=== PATIENT | female | born 1940 | race Caucasian/White ===

== ENCOUNTER 2022-05-07 13:31 | Emergency (ER) | payer MEDICARE, BC, SELFPAY ==
[2022-05-07] VITALS (15 sets, daily range): BP systolic 128–172; BP diastolic 60–70; PULSE 81–92; RESP 15–36; TEMP 36.4; O2SAT 94–100; BMI 20.5
[2022-05-07 14:20] LABS: Add Manual Diff / Slide Review NO; Basophils Absolute Auto 0 /uL (0-100); Basophils Percent Auto 0.4 % (0-2); Eosinophils Absolute Auto 0 /uL (0-450); Eosinophils Percent Auto 0.1 % (2-4); Hematocrit 42.7 % (36-46); Hemoglobin 14.5 g/dL (12.0-16.0); Lymphocytes Absolute Auto 600 /uL (1100-4500); Lymphocytes Percent Auto 10.1 % (25-40); Mean Corpuscular HGB Conc 33.8 % (30-36); Mean Corpuscular Hemoglobin 32.8 PG (26-34); Monocytes Absolute Auto 700 /uL (0-900); Monocytes Percent Auto 11.4 % (3-14); Neutrophils Absolute Auto 5000 /uL (1500-7000); Platelet Count 181 X10^3/uL (150-400); Red Blood Cell Count 4.41 X10^6/uL (4.0-5.2); Red Cell Distribution Width 13.2 % (11.6-14.8); White Blood Cell Count 6.4 X10^3/uL (4.5-11.0)
[2022-05-07 14:38] LABS: Alanine Aminotransferase 22 IU/L (<35); Albumin 3.9 g/dL (3.5-5.0); Albumin Globulin Ratio 1.2 (1.0-2.8); Alkaline Phosphatase 54 U/L (38-126); Aspartate Aminotransferase 34 IU/L (14-36); BUN Creatinine Ratio 26.7 (6-22); Bilirubin Total 0.7 mg/dL (0.2-1.3); Blood Urea Nitrogen 24 mg/dL (7-17); Calcium 9.1 mg/dL (8.4-10.2); Carbon Dioxide 22 mmol/L (22-32); Chloride 100 mmol/L (98-107); Estimated Glomerular Filt Rate > 60 mL/min (>60); Globulin 3.2 g/dL (1.7-4.1); Glucose 110 mg/dL (80-110); Lipase 45 U/L (23-300); Sodium 133 mmol/L (137-145); Total Protein 7.1 g/dL (6.3-8.2)
[2022-05-07 14:39] LABS: HEMOLYSIS 53 (0-50); Potassium 3.2 mmol/L (3.4-5.1)
--- NOTE | 2022-05-07 16:50 | PC.NURSE ---
Pt is unstable on her feet, states she has no appetite and hasn't had much to eat in several days, c/o abd pain, diarrhea and nausea for several days. Recently traveled to [place], was in the ER in [facility].
--- NOTE | 2022-05-07 17:02 | PC.NURSE ---
Pt states black stool a day or two ago. Today watery gold/brown colored diarrhea.
[2022-05-07 17:36] LABS: Appearance Urine UA SL CLOUDY; Bilirubin Urine UA 1+ (NEGATIVE); Color Urine UA YELLOW; Glucose Urine UA NEGATIVE (Negative); Ketones Urine UA 1+ (NEGATIVE); Leukocyte Esterase Urine UA 1+ (NEGATIVE); Nitrite Urine UA NEGATIVE (Negative); Occult Blood Urine UA 2+ (Negative); Protein Urine UA 2+ (Negative); Specific Gravity Urine UA >=1.030 (1.000-1.035); Urobilinogen Urine UA 0.2 E.U./dL (0.2)
[2022-05-07 17:38] LABS: pH Urine UA 5.5 (4.5-8.0)
[2022-05-07 17:39] LABS: Ictotest Urine Negative (Negative)
[2022-05-07 18:00] LABS: Amorphous Sediment Urine 1+; Bacteria Urine Few (2-10); Culture Indicated Urine Specimen Cultured; Mucus Urine 1+ (Negative); RBC Urine 1-5/HPF (0-5/HPF); Squamous Epithelial Cell Urine 0-1 /HPF (0-5/HPF); WBC Urine 5-10/HPF (0-5/HPF)
--- NOTE | 2022-05-07 18:17 | DI.CT.S_ITS ---
PROCEDURE: CT HEAD/BRAIN WO CON INDICATIONS: unsteady gait TECHNIQUE: Noncontrast 4.5 mm thick angled axial sections acquired from the foramen magnum to the vertex, with coronal and sagittal reformats. For radiation dose reduction, the following was used: automated exposure control, adjustment of mA and/or kV according to patient size. COMPARISON: None. FINDINGS: Image quality: Excellent. CSF spaces: Basal cisterns are patent. No extra-axial fluid collections. The ventricles are symmetric in size and shape. Brain: No intracranial bleeds or masses. There is cerebral volume loss for age, with resultant ventricular and sulcal prominence. There are periventricular and deep white matter chronic small vessel ischemic changes. There is intracranial internal carotid artery atherosclerosis. Skull and face: Calvarium and visualized facial bones appear intact, without suspicious lesions. Sinuses: Visualized sinuses and mastoids are clear. IMPRESSION: 1. No acute intracranial abnormalities. 2. Cerebral volume loss and chronic microvascular ischemic changes. Dictated by: Tanya Grover M.D. on 05/07/2022 at 19:24 Approved by: Tanya Grover M.D. on 05/07/2022 at 19:25
--- NOTE | 2022-05-07 18:25 | ED_ITS ---
HPI - Nausea/Vomiting/Diarrhea General Chief complaint: Nausea/Vomiting/Diarrhea Stated complaint: Diarrhea/not eating or drinking t-5 Time Seen by Provider: 05/07/22 18:17 Source: patient Mode of arrival: Ambulatory Limitations: no limitations History of Present Illness HPI Narrative: This is a 81-year-old female with history of TIA who states she is on no daily medications with 5 days of diarrhea she states no appetite, no vomiting, she describes pain intermittently across her upper abdomen bilaterally. She denies any back or flank pain. She denies dysuria urgency or frequency. She states she was having 3-5 episodes of diarrhea the 1st several days and then 2 episodes the last day. She states diarrhea was black and discoloration the 1st 2 days and is now gama color and very watery. She denies any rectal pain. Her and her note they think she may have had a TIA in the last couple weeks. Only noted speech changes. No weakness or other changes appreciated. Both she and her states she is not on aspirin, no Plavix or other blood thinners. They states she is had several episodes of TIAs in the past. She denies major surgeries. Allergic to sulfa. Related Data Previous Rx's Medication Instructions Recorded amoxicillin 875 mg-potassium 1 tab PO BID #20 tabs 05/07/22 clavulanate 125 mg tablet Allergies Allergy/AdvReac Type Severity Reaction Status Date / Time Sulfa (Sulfonamide Allergy Unknown Verified 05/07/22 13:46 Antibiotics) [SULFA (SULFONAMIDE ANTIBIOTICS)] Review of Systems Review of Systems ROS Unobtainable: All systems reviewed & are unremarkable except as noted in HPI and below Patient History Social History Smoking Status: Unknown if ever smoked Smoking Status: Unknown if ever smoked alcohol intake frequency: holidays/special occasions only Substance Use Type: does not use Exam Narrative Exam Narrative: GEN: well nourished, well appearing female, alert and oriented x 3, patient appears to be in mild distress. HEENT: Atraumatic, pupils are equal round reactive to light, extraocular movements are intact, nares are clear, TMs are clear with no fluid, there is no conjunctival pallor. Throat is clear without any exudates, erythema, tonsillar enlargement or uvular deviation HEART: Regular rate and rhythm without murmur, clicks, rubs. Pulses are equal in upper and lower extremities LUNGS:Lungs clear to auscultation, no wheezes, rales, crackles, chest moves symmetrically ABD:bowel sounds normal, soft, non-tender, no guarding, rebound, rigidity, no masses noted, no hepatosplenomegaly, nontender. Nondistended. :No CVA tenderness MSCL: Non-tender, no muscle atrophy, muscles strength 5/5 upper and lower extremities, full range of motion NEURO:CN 2-12 intact, sensation normal, reflexes 2/4 upper and lower extremities. finger nose finger test normal, heel louis test normal, romberg normal Initial Vital Signs Initial Vital Signs: Vital Signs Temperature 97.6 F 05/07/22 13:46 Pulse Rate 90 05/07/22 13:46 Respiratory Rate 15 05/07/22 13:46 Blood Pressure 128/60 05/07/22 13:46 Pulse Oximetry 99 05/07/22 13:46 Oxygen Delivery Method 05/07/22 13:46 Course Orders Ordered: Discontinued Medications Ceftriaxone Sodium 2,000 mg/ (Sodium Chloride) 100 mls @ 200 mls/hr IV NOW ONE Stop: 05/07/22 18:23 Last Infusion: 05/07/22 20:32 Dose: 0 mls/hr Documented By: Admin: 05/07/22 19:15 Dose: 200 mls/hr Documented By: OSMANY Vital Signs Vital signs: Vital Signs - 8 hr 05/07/22 13:46 05/07/22 16:46 Temperature 97.6 F Pulse Rate 90 85 Respiratory Rate 15 17 Blood Pressure 128/60 154/70 H Pulse Oximetry 99 Oxygen Delivery Method Room Air MDM - Nausea/Vomiting/Diarrhea Lab Data Result diagrams: 05/07/22 13:51 05/07/22 13:51 Labs: Lab Results 05/07/22 05/07/22 05/07/22 Range/Units 13:51 13:51 13:51 WBC 6.4 (4.5-11.0) X10^3/uL RBC 4.41 (4.0-5.2) X10^6/uL Hgb 14.5 (12.0-16.0) g/dL Hct 42.7 (36-46) % MCV 97.0 (80-100) fL MCH 32.8 (26-34) PG MCHC 33.8 (30-36) % RDW 13.2 (11.6-14.8) % Plt Count 181 (150-400) X10^3/uL Neut % (Auto) 78.0 H (50-75) % Lymph % (Auto) 10.1 L (25-40) % Iron % (Auto) 11.4 (3-14) % Eos % (Auto) 0.1 L (2-4) % Baso % (Auto) 0.4 (0-2) % Neut # (Auto) 5000 (9524-3549) /uL Lymph # (Auto) 600 L (5256-6570) /uL Iron # (Auto) 700 (0-900) /uL Eos # (Auto) 0 (0-450) /uL Baso # (Auto) 0 (0-100) /uL PT 12.0 (10.1-12.7) SECONDS INR 1.0 (0.9-1.3) Sodium 133 L (137-145) mmol/L Potassium 3.2 L (3.4-5.1) mmol/L Chloride 100 (98-107) mmol/L Carbon Dioxide 22 (22-32) mmol/L BUN 24 H (7-17) mg/dL Creatinine 0.90 (0.52-1.04) mg/dL Estimated GFR > 60 (>60) mL/min BUN/Creatinine Ratio 26.7 H (6-22) Glucose 110 (80-110) mg/dL Calcium 9.1 (8.4-10.2) mg/dL Total Bilirubin 0.7 (0.2-1.3) mg/dL AST 34 (14-36) IU/L ALT 22 (<35) IU/L Alkaline Phosphatase 54 (38-126) U/L Total Protein 7.1 (6.3-8.2) g/dL Albumin 3.9 (3.5-5.0) g/dL Globulin 3.2 (1.7-4.1) g/dL Albumin/Globulin Ratio 1.2 (1.0-2.8) Lipase 45 (23-300) U/L Urine Color Urine Appearance Urine pH (4.5-8.0) Ur Specific Otis (1.000-1.035) Urine Protein (Negative) Urine Glucose (UA) (Negative) g/dL Urine Ketones (NEGATIVE) Urine Occult Blood (Negative) Urine Nitrate (Negative) Urine Bilirubin (NEGATIVE) Ur Bilirubin Confirm (Negative) Urine Urobilinogen (0.2) E.U./dL Ur Leukocyte Esterase (NEGATIVE) Urine RBC (0-5/HPF) Urine WBC (0-5/HPF) Ur Squamous Epith Cells (0-5/HPF) Amorphous Sediment Urine Bacteria (None) Urine Mucus (Negative) Ur Culture Indicated? 05/07/22 Range/Units 17:02 WBC (4.5-11.0) X10^3/uL RBC (4.0-5.2) X10^6/uL Hgb (12.0-16.0) g/dL Hct (36-46) % MCV (80-100) fL MCH (26-34) PG MCHC (30-36) % RDW (11.6-14.8) % Plt Count (150-400) X10^3/uL Neut % (Auto) (50-75) % Lymph % (Auto) (25-40) % Iron % (Auto) (3-14) % Eos % (Auto) (2-4) % Baso % (Auto) (0-2) % Neut # (Auto) (8622-9814) /uL Lymph # (Auto) (5769-7856) /uL Iron # (Auto) (0-900) /uL Eos # (Auto) (0-450) /uL Baso # (Auto) (0-100) /uL PT (10.1-12.7) SECONDS INR (0.9-1.3) Sodium (137-145) mmol/L Potassium (3.4-5.1) mmol/L Chloride (98-107) mmol/L Carbon Dioxide (22-32) mmol/L BUN (7-17) mg/dL Creatinine (0.52-1.04) mg/dL Estimated GFR (>60) mL/min BUN/Creatinine Ratio (6-22) Glucose (80-110) mg/dL Calcium (8.4-10.2) mg/dL Total Bilirubin (0.2-1.3) mg/dL AST (14-36) IU/L ALT (<35) IU/L Alkaline Phosphatase (38-126) U/L Total Protein (6.3-8.2) g/dL Albumin (3.5-5.0) g/dL Globulin (1.7-4.1) g/dL Albumin/Globulin Ratio (1.0-2.8) Lipase (23-300) U/L Urine Color Yellow Urine Appearance Sl cloudy Urine pH 5.5 (4.5-8.0) Ur Specific Otis >=1.030 H (1.000-1.035) Urine Protein 2+ H (Negative) Urine Glucose (UA) Negative (Negative) g/dL Urine Ketones 1+ H (NEGATIVE) Urine Occult Blood 2+ H (Negative) Urine Nitrate Negative (Negative) Urine Bilirubin 1+ H (NEGATIVE) Ur Bilirubin Confirm Negative (Negative) Urine Urobilinogen 0.2 (0.2) E.U./dL Ur Leukocyte Esterase 1+ H (NEGATIVE) Urine RBC 1-5/hpf (0-5/HPF) Urine WBC 5-10/hpf H (0-5/HPF) Ur Squamous Epith Cells 0-1 /hpf (0-5/HPF) Amorphous Sediment 1+ Urine Bacteria Few (2-10) H (None) Urine Mucus 1+ H (Negative) Ur Culture Indicated? Specimen cultured Urine Dip Bedside Urine Glucose Negative Bedside Urine Bilirubin + 1 Bedside Urine Ketone +/- 5 Urine Specific Otis 1.030 Bedside Urine Occult Blood ++ Bedside Urine pH 6.0 Bedside Urine Protein + 30 Bedside Urine Urobilinogen - Negative Bedside Urine Nitrite - Negative Bedside Urine Leukocytes +/- 15 Esterase ECG Data Attestation: I personally reviewed and interpreted this ECG as follows: Interpretation: Sinus rhythm rate 88 AK 126 QRS of 146 QTC 467. No acute changes, left ventricular hypertrophy QRS widening. No priors for comparison. [facility] Narrative Medical decision making narrative: This is an 81-year-old female with complaint of decreased appetite, diarrhea and black stools that are now gama in color. Her and her also states she may have had a TIA and had speech changes a couple weeks ago similar to prior episodes. Patient labs including CBC, CMP LFTs are negative, coags are negative urine does show ketones blood, leukocyte esterase and 5-10 white cells with few bacteria. CT abdomen pelvis was obtained as well as CT head. Patient has no acute changes, chronic changes. Patient has fluid-filled bowel loops consistent gastroenteritis possible mild colitis eccentric thickening of the rectum which could be a proctitis versus artifact and mass. Questionable small left renal aneurysm and hiatal hernia. Discussed today's findings with patient does appear to have UTI, will treat with antibiotics we did discuss she needs colonoscopy for follow-up to evaluate for possible malignancy versus proctitis etc.. Patient and all questions answered we discussed return precautions. Discharge Plan Departure Patient Disposition: Home Clinical Impression: Acute UTI, Diarrhea Instructions: DI for Colitis Activity Restrictions/Additional Instructions: Your imaging today shows some signs of gastroenteritis which could be viral illnesses but also colitis. You also appear to have a UTI or bladder infection in your urine sample. This is likely causing your pain. I would recommend having a follow up colonscopy after your symptoms have resolved. I would recommend taking antibiotics until completely gone. Prescription sent to [facility] in [place]. Please return for fevers, new or worsening abdominal back or flank pain, persistent black or tarry stools, lightheadedness or passing out, fevers, passing, new chest pain or shortness of breath or other new or concerning changes. Prescriptions: New amoxicillin-pot clavulanate 875-125 mg tablet 1 tab PO BID Qty: 20 0RF Referrals: Sreedhar Harrell MD [Primary Care Provider] - Visit Report Forms: Patient Portal/API
--- NOTE | 2022-05-07 18:33 | DI.CT.S_ITS ---
PROCEDURE: CT ABDOMEN PELVIS W CON INDICATIONS: diarrhea, was black but not now TECHNIQUE: After the administration of oral and IV contrast, axial sections were acquired from the lung bases to the pubic symphysis. Coronal and sagittal reformats were performed. For radiation dose reduction, the following was used: automated exposure control, adjustment of mA and/or kV according to patient size. COMPARISON: None. FINDINGS: Image quality: Excellent. Lung bases: Left basilar opacity may be consolidation or atelectasis. Bibasilar scars. Small hiatal hernia and mild bilateral concentric thickening of the distal esophagus. Heart: Mild cardiomegaly. There is prominent pericardial fluid adjacent to the left pulmonary artery, likely a pericardial recess. ABDOMEN: Liver: Normal size. Small hepatic hypodensities are most likely cysts. Gallbladder: Unremarkable. Biliary ducts: Unremarkable. Pancreas: Unremarkable. Spleen: Unremarkable. Adrenal Glands: Bilateral adrenal thickening.. Kidneys and Ureters: Suspect multiple parapelvic left renal cysts. There is a 0.7 cm rim calcified structure in the left renal hilum, which could represent a small renal artery aneurysm.. Stomach and Bowel: Mild eccentric thickening of rectum. Stomach, small bowel loops, and colon are normal in caliber. Fluid filled small bowel and colon loops demonstrates upper limits normal in caliber. No transitional point to suggest small bowel obstruction. There is diffuse increased mucosal enhancement in small intestine and colon, nonspecific suggesting gastroenteritis. Subtle wall thickening in the splenic flexure compatible with mild colitis. Peritoneum: No abnormal intraperitoneal fluid. No free air. Ventral Wall: No hernia. Abdominal Nodes: No retroperitoneal or mesenteric adenopathy by size criteria. Vessels: Aorta and inferior vena cava are normal in size. PELVIS: Pelvic Organs: There is a calcified nodule in uterus, likely a calcified uterine fibroid.. Bladder: Unremarkable. Pelvic Nodes: No enlarged lymph nodes. Miscellaneous: No inguinal hernias are seen. Bones: Mild levoscoliosis. There is T 11-T12 fusion. Moderate degenerative disc and facet disease in lumbar spine. Osteopenia. A small sclerotic focus in the right iliac bone is seen, most likely a bone island. IMPRESSION: 1. Fluid-filled bowel loops are seen involving small bowel and colon with diffusely mucosal enhancement suggesting nonspecific gastroenteritis. 2. There is mild colonic wall thickening in the splenic flexure area, compatible with mild colitis. 3. There is eccentric thickening of rectum at the rectal anal junction. Differential diagnosis include artifact, proctitis and mass. Recommend endoscopic follow-up. 4. Para pelvis cyst in left kidney. 5. Question small left renal artery aneurysm. 6. Small hiatal hernia. There is mild concentric thickening at the GE junction. Etiologies may be esophagitis or gastroesophageal reflux. 7. Left basilar pneumonia or atelectasis. Dictated by: Tanya Grover M.D. on 05/07/2022 at 20:17 Approved by: Tanya Grover M.D. on 05/07/2022 at 20:27
[2022-05-07] MEDS: cefTRIAXone 2,000 MG in SODIUM CHLORIDE 0.9% 100 ML 200 MG IV (19:15)
--- NOTE | 2022-05-07 20:27 | PC.NURSE ---
[employer] note: attempting to get records. Spoke to the commercial project manager at [facility] in [place], [place] to get records. Faxed over for records.
== END 2022-05-07 21:03 | disposition home or self-care (01) ==
PROVIDERS: Emergency Medicine; Emergency Provider Emergency Medicine; PCP Family Medicine
DX: N39.0 Urinary tract infection, site not specified (principal); R19.7 Diarrhea, unspecified; R10.9 Unspecified abdominal pain; Z20.822 Contact with and (suspected) exposure to COVID-19; R26.81 Unsteadiness on feet
CPT/HCPCS: 36415; 70450; 74177; 80053; 81001; 81003; 83690; 85025; 85610; 87077; 87086; 87186; 93005; 93010; 96365; 99284; J0696; Q9967

== ENCOUNTER → 2022-05-11 13:01 | Outpatient (CLI) | payer MEDICARE, BC, SELFPAY ==
--- NOTE | 2022-05-11 | DI.RAD.S_ITS ---
PROCEDURE: XR CHEST 2V INDICATIONS: Cough, unspecified TECHNIQUE: 2 views of the chest were acquired. COMPARISON: None. FINDINGS: Surgical changes and devices: None. Lungs and pleura: Mild right upper lobe infiltrate Bilateral interstitial prominence. No pleural effusions or pneumothorax. Mediastinum: Mediastinal contours are normal. Heart size is normal. Bones and chest wall: No suspicious bony abnormalities. There is osteopenia. Soft tissues appear unremarkable. IMPRESSION: 1. Mild right upper lobe infiltrate suspicious for developing pneumonia. 2. Bilateral interstitial prominence suggesting chronic interstitial lung disease. Dictated by: Tanya Grover M.D. on 05/11/2022 at 13:58 Approved by: Tanya Grover M.D. on 05/11/2022 at 14:04
== END ==
PROVIDERS: Referring Provider Registered Nurse; Visit Provider Registered Nurse
DX: R05.9 Cough, unspecified (principal); R91.8 Other nonspecific abnormal finding of lung field
CPT/HCPCS: 71046

== ENCOUNTER 2022-05-20 10:45 | Emergency (ER) | payer MEDICARE, BC, SELFPAY ==
[2022-05-20 10:48] VITALS: BP 166/77; PULSE 84; RESP 15; TEMP 36.4; O2SAT 99; BMI 22.3
== END 2022-05-20 13:40 | disposition left against medical advice (07) ==
PROVIDERS: Emergency Provider Emergency Medicine
CPT/HCPCS: 99281

== ENCOUNTER → 2022-05-21 15:15 | Outpatient (CLI) | payer MEDICARE, OTHER, SELFPAY ==
--- NOTE | 2022-05-21 | DI.US.S_ITS ---
PROCEDURE: US PERIPH VENOUS LOW EXTREM LT INDICATIONS: LOCALIZED SWELLING, MASS, OR LUMP - RULE OUT DVT TECHNIQUE: Real-time imaging, as well as color and pulse Doppler interrogation, were performed of the lower extremity deep veins from the inguinal ligament to the popliteal fossa. COMPARISON: None. FINDINGS: There is partially occlusive thrombus seen within the profundus femoris vein. No additional findings of deep venous thrombosis can be seen. There is a superficial vein included within the distal thigh, which is connected to the distal profundus femoris vein. An additional superficial vein is occluded within the mid medial calf. IMPRESSION: Partially occlusive deep venous thrombosis is seen within the profundus femoris vein. Additional foci of occlusive superficial venous thrombosis can be seen within the distal thigh as well as within the mid medial calf. (This patient was instructed to report to the emergency department for further evaluation and treatment, as the referring provider cannot be contacted at the time of the original study.) Dictated by: Reilly Porter M.D. on 05/21/2022 at 17:12 Approved by: Reilly Porter M.D. on 05/21/2022 at 17:14
== END ==
PROVIDERS: PCP Family Medicine; Referring Provider Internal Medicine; Visit Provider Internal Medicine
DX: I82.412 Acute embolism and thrombosis of left femoral vein (principal); I82.812 Embolism and thrombosis of superficial veins of left lower extremity; R22.42 Localized swelling, mass and lump, left lower limb
CPT/HCPCS: 93971

== ENCOUNTER 2022-05-21 17:26 | Emergency (ER) | payer MEDICARE, BC, SELFPAY ==
[2022-05-21 17:35] VITALS: BP 136/74; PULSE 85; RESP 18; TEMP 36.6; O2SAT 97; BMI 22.3
--- NOTE | 2022-05-21 20:21 | ED_ITS ---
HPI - Recheck/Abnormal Lab/Rx General Chief Complaint: Recheck/Abnormal Lab/Rx Stated Complaint: s/p leg scan Time Seen by Provider: 05/21/22 20:07 Source: patient Mode of arrival: Ambulatory History of Present Illness HPI narrative: Patient is an 81-year-old female who underwent an outpatient left lower extremity DVT ultrasound that was ordered by her primary doctor's office. Patient was sent to the emergency department after this scan was completed because of the positive DVT result. She states she did have a flight within the past month. Started noticing some lumps behind her left knee. This is why the scan was ordered. She denies chest pain. No shortness of breath. Not on blood thinners. Ambulates without any problems. Has never had a blood clot in the past. Related Data Previous Rx's Medication Instructions Recorded amoxicillin 875 mg-potassium 1 tab PO BID #20 tabs 05/07/22 clavulanate 125 mg tablet rivaroxaban 15 mg tablet 15 mg PO BID 21 days #42 tabs 05/21/22 Allergies Allergy/AdvReac Type Severity Reaction Status Date / Time Sulfa (Sulfonamide Allergy Unknown Verified 05/20/22 10:52 Antibiotics) [SULFA (SULFONAMIDE ANTIBIOTICS)] Review of Systems Cardiovascular Cardiovascular: Reports system reviewed and no additional complaints, except as documented Respiratory Respiratory: Reports system reviewed and no additional complaints, except as documented Musculoskeletal Musculoskeletal: Reports system reviewed and no additional complaints, except as documented Integumentary/Breasts Skin/Breast: Reports system reviewed and no additional complaints, except as documented Hematologic/Lymphatic Hematologic/Lymphatic: Reports system reviewed and no additional complaints, except as documented On Anticoagulants: No Patient History Social History Smoking Status: Unknown if ever smoked Smoking Status: Unknown if ever smoked alcohol intake frequency: holidays/special occasions only Substance Use Type: does not use Exam Initial Vital Signs Initial Vital Signs: Vital Signs Temperature 97.9 F 05/21/22 17:35 Pulse Rate 85 05/21/22 17:35 Respiratory Rate 18 05/21/22 17:35 Blood Pressure 136/74 05/21/22 17:35 Pulse Oximetry 97 05/21/22 17:35 Oxygen Delivery Method 05/21/22 17:35 Resp Effort & Inspection: normal respiratory effort Cardio Rate: regular rate Skin General: no rashes or lesions noted Neuro Gait: normal gait Extrem General: No edema Course Orders Ordered: Discontinued Medications Rivaroxaban (Rivaroxaban 10 Mg Tablet) 15 mg PO NOW ONE Stop: 05/21/22 20:24 Last Admin: 05/21/22 20:45 Dose: 15 mg Documented By: LIZETH Vital Signs Vital signs: Vital Signs - 8 hr 05/21/22 17:35 Temperature 97.9 F Pulse Rate 85 Respiratory Rate 18 Blood Pressure 136/74 Pulse Oximetry 97 Oxygen Delivery Method Room Air MDM - Recheck/Abnormal Lab/Rx Imaging Data US - DVT: Radiologist's Impression: [address] [address] Ultrasound Report Signed Patient: Kasie Mittal MR#: [id number] : 1940 Acct:[id number] Age/Sex: 81 / F Date of Service: 05/21/22 Loc: Accession Number: [id number] ?? Procedure: US periph venous low extrem lt Ordering Provider: Rupali Reyna PROCEDURE:? US PERIPH VENOUS LOW EXTREM LT ? INDICATIONS:? LOCALIZED SWELLING, MASS, OR LUMP - RULE OUT DVT ? TECHNIQUE:? Real-time imaging, as well as color and pulse Doppler interrogation, were performed of the lower extremity deep veins from the inguinal ligament to the popliteal fossa.? ? COMPARISON:? None. ? FINDINGS:? There is partially occlusive thrombus seen within the profundus femoris vein.? ?No additional findings of deep venous thrombosis can be seen. ? There is a superficial vein included within the distal thigh, which is connected to the distal profundus femoris vein. ? An additional superficial vein is occluded within the mid medial calf. ? ? IMPRESSION:? Partially occlusive deep venous thrombosis is seen within the profundus femoris vein. ? Additional foci of occlusive superficial venous thrombosis can be seen within the distal thigh as well as within the mid medial calf. ? (This patient was instructed to report to the emergency department for further evaluation and treatment, as the referring provider cannot be contacted at the time of the original study.) ? ? Dictated by: Reilly Porter M.D. on 05/21/2022 at 17:12 ? ? Approved by: Reilly Porter M.D. on 05/21/2022 at 17:14?? MDM Narrative Medical decision making narrative: The ultrasound included in the note today is for reference purposes only. It was ordered by her primary doctor's office and performed as an outpatient. She does have a DVT. No chest pain. No shortness of breath. I did discuss the findings with her. Discussed the risks and benefits of anticoagulation. Will discharge home with a prescription for anticoagulation and she was instructed to contact her primary doctor's office for a follow-up. She was given return precautions. She expressed understanding and agreement. Discharge Plan Departure Patient Disposition: Home Clinical Impression: DVT (deep venous thrombosis) Instructions: DI for Deep Vein Thrombosis Activity Restrictions/Additional Instructions: A prescription for a blood thinner was [facility] to [facility] per your request. This dose that was prescribed will be which you are on for the next 21 days. This will have to be changed after 21 days and your primary care doctor can do this. Contact your primary care doctor's office tomorrow for a follow-up. Return to the emergency department for any new or worsening symptoms. Prescriptions: New rivaroxaban 15 mg tablet 15 mg PO BID 21 Days Qty: 42 0RF Rx Instructions: must administer with evening meal No Action amoxicillin-pot clavulanate 875-125 mg tablet 1 tab PO BID Qty: 20 0RF Referrals: Sreedhar Harrell MD [Primary Care Provider] - Stand Alone Forms: Patient Portal/API
[2022-05-21] MEDS: RIVAROXABAN 10 MG TABLET 15 MG PO (20:45)
== END 2022-05-21 20:48 | disposition home or self-care (01) ==
PROVIDERS: Emergency Provider Emergency Medicine; PCP Family Medicine
DX: I82.402 Acute embolism and thrombosis of unspecified deep veins of left lower extremity (principal); I82.412 Acute embolism and thrombosis of left femoral vein; I82.812 Embolism and thrombosis of superficial veins of left lower extremity
CPT/HCPCS: 93971; 99283

== ENCOUNTER → 2023-03-24 11:19 | Outpatient (CLI) | payer MEDICARE, BC, SELFPAY ==
--- NOTE | 2023-03-24 11:24 | DI.RAD.S_ITS ---
PROCEDURE: XR CHEST 2V INDICATIONS: rib pain TECHNIQUE: 2 views of the chest were acquired. COMPARISON: [facility], CR, XR CHEST 2V, 05/11/2022, 13:24. FINDINGS: Surgical changes and devices: None. Lungs and pleura: Lungs are clear. No pleural effusions or pneumothorax. Mediastinum: Mediastinal contours are normal. Heart size is normal. Bones and chest wall: No suspicious bony abnormalities. Soft tissues appear unremarkable. IMPRESSION: No acute cardiopulmonary abnormality is seen. Dictated by: Pilar Holman M.D. on 03/24/2023 at 12:35 Approved by: Pilar Holman M.D. on 03/24/2023 at 12:36
== END ==
PROVIDERS: PCP Family Medicine; Referring Provider Family Medicine; Visit Provider Family Medicine
DX: R07.81 Pleurodynia (principal)
CPT/HCPCS: 71046

== ENCOUNTER 2025-01-24 20:34 | Observation (INO) | payer MEDICARE, BC, SELFPAY ==
[2025-01-24] VITALS (11 sets, daily range): BP systolic 162–180; BP diastolic 77–87; PULSE 78–100; RESP 16–24; TEMP 37.1; O2SAT 95–99; BMI 20.1
--- NOTE | 2025-01-24 20:40 | ED.NEUROSD ---
HPI - Neuro Symptoms/Deficit General Chief Complaint: Neuro Symptoms/Deficit Stated Complaint: Lt arm weakness Time Seen by Provider: 01/24/25 20:40 History of Present Illness HPI Narrative: 84-year-old female patient with a history of Who complains of sudden onset lower extremity weakness starting at 7:30 p.m. this evening. She has incoordination, numbness and weakness of the left upper extremity with no speech problems, facial droop or other deficit. Related Data Allergies Allergy/AdvReac Type Severity Reaction Status Date / Time Sulfa (Sulfonamide Allergy Unknown Verified 01/24/25 20:40 Antibiotics) (SULFA (SULFONAMIDE ANTIBIOTICS)) Review of Systems Review of Systems ROS Unobtainable: All systems reviewed & are unremarkable except as noted in HPI and below Neurologic Neurologic: Reports as per HPI Patient History Social History Smoking Status: Unknown if ever smoked alcohol intake frequency: holidays/special occasions only Exam Narrative Exam Narrative: General: Alert and conversant. No distress. Appears well nourished and well hydrated Craniofacial: No evidence of trauma. Nontender and no swelling. Lungs: Clear to auscultation with good air movement. No wheezing, rales or rhonchi. No respiratory distress Cardiac: Regular rate and rhythm with no appreciable murmur or gallop Abdomen: Soft, nontender with no distention or masses. Normal bowel sounds. No rebound or guarding Musculoskeletal: Exam of the extremities, axial spine and ribcage reveals no deformity, bony tenderness or swelling. Range of motion intact Neuro: Left upper extremity weakness and incoordination with nose to finger. Otherwise cranial nerves and speech intact. Right upper extremity and lower extremities appear to have normal strength. Alert and oriented. Skin: Warm and normal color. No rashes Psychological: Normal affect and interaction. No evidence of delusion or psychosis. Normal mood. Initial Vital Signs Initial Vital Signs: Vital Signs Temperature 98.7 F 01/24/25 20:35 Pulse Rate 100 H 01/24/25 20:35 Respiratory Rate 16 01/24/25 20:35 Blood Pressure 162/77 H 01/24/25 20:35 Pulse Oximetry 96 01/24/25 20:35 Oxygen Delivery Method Room Air 01/24/25 20:35 Course Course Course Narrative: Initial troponin is 0.051. No chest pain. 00:18 I discussed the patient's care with Dr. Gillette, neuro stroke fellow at [facility] who is going to look at the films and call back with recommendations for management. 00:40 I discussed the patient again with Dr. Gillette, who recommends admission with stroke protocol and MRI in the morning. Patient has received aspirin. No Plavix for now. Statin therapy 00:52 I discussed the patient's care with Dr. Underwood, attending who accepts the admission on observation. Orders Ordered: ED Orders 01/24/25 20:40 Complete Blood Count AUTO DIFF Stat Comprehensive Metabolic Panel Stat PTT Partial Thromboplastin Josue Stat Prothrombin Time INR Stat Troponin & CK Cardiac Panel Stat 01/24/25 20:[address] angio head and neck Stat XR chest 1V Stat EKG-12 Lead Stat 01/24/25 22:36 Urine Culture Stat Urine Drug Screen, Rapid Stat Urine Microscopic Stat 01/24/25 23:46 Trop I [Troponin I] Stat Ondansetron HCl (Ondansetron 4 Mg/2 Ml Inj) 4 mg IV NOW PRN PRN Reason: Nausea And Vomiting Ondansetron HCl (Ondansetron 4 Mg Odt) 4 mg PO NOW PRN PRN Reason: Nausea And Vomiting Discontinued Medications Aspirin (Aspirin 81 Mg Chew Tab) 324 mg PO NOW ONE Stop: 01/24/25 21:23 Last Admin: 01/24/25 21:29 Dose: 324 mg Documented By: JUNO Atorvastatin Calcium (Atorvastatin 20 Mg Tablet) 80 mg PO NOW ONE Stop: 01/25/25 00:55 Metoprolol Succinate (Metoprolol Er 25 Mg Tablet) 25 mg PO NOW ONE Stop: 01/24/25 23:33 Last Admin: 01/24/25 23:40 Dose: 25 mg Documented By: JUNO Vital Signs Vital signs: Vital Signs - 8 hr 01/24/25 20:35 01/24/25 20:38 01/24/25 20:39 Temperature 98.7 F Pulse Rate 100 H 99 H 99 H Respiratory Rate 16 17 Blood Pressure 162/77 H Pulse Oximetry 96 97 96 Oxygen Delivery Method Room Air 01/24/25 20:39 01/24/25 21:00 01/24/25 21:30 Temperature Pulse Rate 93 H 86 Respiratory Rate 20 24 Blood Pressure 162/77 H Pulse Oximetry 99 96 Oxygen Delivery Method 01/24/25 22:00 01/24/25 22:33 01/24/25 22:35 Temperature Pulse Rate 83 90 90 Respiratory Rate 23 24 22 Blood Pressure Pulse Oximetry 96 98 98 Oxygen Delivery Method 01/24/25 22:35 01/24/25 23:00 01/24/25 23:00 Temperature Pulse Rate 78 Respiratory Rate 21 Blood Pressure 180/86 H 176/80 H Pulse Oximetry 95 Oxygen Delivery Method 01/24/25 23:30 01/24/25 23:30 01/24/25 23:40 Temperature Pulse Rate 81 79 Respiratory Rate 20 Blood Pressure 176/87 H 176/87 H Pulse Oximetry Oxygen Delivery Method 01/25/25 00:00 01/25/25 00:00 Temperature Pulse Rate 78 Respiratory Rate 22 Blood Pressure 164/81 H Pulse Oximetry Oxygen Delivery Method MDM - Neuro Symptoms/Deficit Lab Data Attestation: I reviewed the patient's lab results. Lab results narrative: CBC and CMP essentially unremarkable. Glucose 161. Initial troponin is 0.051. 01/24/25 20:40 01/24/25 20:40 Labs: Lab Results 01/24/25 01/24/25 01/24/25 Range/Units 20:40 22:36 23:46 WBC 7.4 (4.5-11.0) X10^3/uL RBC 4.31 (4.0-5.2) X10^6/uL Hgb 14.5 (12.0-16.0) g/dL Hct 43.3 (36-46) % MCV 100.3 H (80-100) fL MCH 33.5 (26-34) PG MCHC 33.4 (30-36) % RDW 13.5 (11.6-14.8) % Plt Count 252 (150-400) X10^3/uL Neut % (Auto) 70.4 (50-75) % Lymph % (Auto) 19.1 L (25-40) % [place] % (Auto) 8.2 (3-14) % Eos % (Auto) 1.4 L (2-4) % Baso % (Auto) 0.9 (0-2) % Neut # (Auto) 5200 (5916-0520) /uL Lymph # (Auto) 1400 (3780-0216) /uL [place] # (Auto) 600 (0-900) /uL Eos # (Auto) 100 (0-450) /uL Baso # (Auto) 100 (0-100) /uL PT 11.5 (9.4-12.5) SECONDS INR 1.0 (0.9-1.3) APTT 29 (25.1-36.5) SECONDS Sodium 140 (137-145) mmol/L Potassium 4.3 (3.4-5.1) mmol/L Chloride 110 H (98-107) mmol/L Carbon Dioxide 21 L (22-32) mmol/L BUN 34 H (7-17) mg/dL Creatinine 0.93 (0.52-1.04) mg/dL Estimated GFR 60 (>60) mL/min BUN/Creatinine Ratio 36.6 H (6-22) Glucose 161 H (70-99) mg/dL POC Whole Bld Glucose 148 H (70-99) mg/dL Calcium 10.2 (8.4-10.2) mg/dL Total Bilirubin 0.8 (0.2-1.3) mg/dL AST 36 (14-36) IU/L ALT 27 (<35) IU/L Alkaline Phosphatase 70 (38-126) U/L Total Creatine Kinase 69 (30-135) U/L Troponin I 0.051 H 0.047 H (0.01-0.034) ng/mL Total Protein 7.2 (6.3-8.2) g/dL Albumin 4.4 (3.5-5.0) g/dL Globulin 2.8 (1.7-4.1) g/dL Albumin/Globulin Ratio 1.6 (1.0-2.8) Urine RBC 1-5/hpf (0-5/HPF) Urine WBC 5-10/hpf H (0-5/HPF) Ur Squamous Epith Cells 0-1 /hpf (0-5/HPF) Urine Bacteria Occasional (0-1) (None) Ur Culture Indicated? Specimen cultured Vol Urine Centrifuged 10ml (spun) U Opiates 300ng/mL cut Negative (Negative) Ur Oxycodone Screen Negative (Negative) Urine Methadone Screen Negative (Negative) Ur Barbiturates Screen Negative (Negative) U Tricyclic Antidepress Negative (Negative) Ur Phencyclidine Scrn Negative (Negative) Ur Amphetamines Screen Negative (Negative) U Methamphetamines Scrn Negative (Negative) Ur MDMA Scrn (Ecstasy) Negative (Negative) U Benzodiazepines Scrn Negative (Negative) Urine Cocaine Screen Negative (Negative) U Marijuana (THC) Screen Negative (Negative) Urine pH Normal (Normal) Urine Specific [place] Normal (Normal) Ur Creatinine Normal (Normal) Point of Care Testing Glucose POC 148 Urine Dip Bedside Urine Glucose Negative Bedside Urine Bilirubin - Negative Bedside Urine Ketone - Negative Urine Specific [place] 1.010 Bedside Urine Occult Blood +/- Bedside Urine pH 6.0 Bedside Urine Protein +/- 15 Bedside Urine Urobilinogen 1+ 2mg Bedside Urine Nitrite - Negative Bedside Urine Leukocytes + 70 Esterase Imaging Data Chest x-ray: Attestation: I personally reviewed and interpreted this imaging study as follows: My Impression: No acute disease CT scan - head: Attestation: I personally reviewed and interpreted this imaging study as follows: (No acute disease) Radiologist's Impression: IMPRESSION: No acute intracranial pathology. Findings communicated to the [facility] emergency department at the time of dictation. This study fulfills neurological imaging criteria for inclusion or exclusion of acute stroke therapies based on available published neurological guidelines. CTA - brain/neck: Radiologist's Impression: IMPRESSION: No significant intracranial arterial abnormality is seen. No significant abnormality is seen within the arteries of the neck. Right upper lobe ground-glass and consolidative opacity measuring 2 cm, findings may represent infection. Recommend follow-up chest CT in 3 months to ensure resolution and exclude underlying neoplasm as this may also represent a sub solid nodule. Enlarged thyroid gland with multiple nodules. If not previously obtained, recommend nonurgent thyroid ultrasound. Any quantitative measurements of stenosis were performed using NASCET criteria ECG Data Attestation: I personally reviewed and interpreted this ECG as follows: (Sinus rhythm. RBBB. Otherwise no ischemic changes or interval changes. Rate 94) MDM Narrative Medical decision making narrative: Patient has sudden onset left upper extremity symptoms consistent with possible stroke. I discussed her care with [facility] neuro stroke team and with her primary care physician. She is admitted for stroke management with high-dose statin, aspirin, MRI in the morning. Permissive hypertension. Discharge Plan Departure Patient Disposition: Admitted as Observation Clinical Impression: Cerebrovascular accident Admit Date/Time: 01/25/25 00:53 Admit Provider: Josseline Underwood
--- NOTE | 2025-01-24 20:46 | DI.RAD.S_ITS ---
PROCEDURE: XR CHEST 1V INDICATIONS: Possible stroke TECHNIQUE: One view of the chest was acquired. COMPARISON: [facility], CR, XR CHEST 2V, 03/24/2023, 11:30. [facility], CR, XR CHEST 2V, 05/11/2022, 13:24. FINDINGS: Surgical changes and devices: None. Lungs and pleura: Lungs are clear. No pleural effusions or pneumothorax. Mediastinum: Mediastinal contours appear normal. Heart size is normal. Bones and chest wall: No suspicious bony lesions. Overlying soft tissues appear unremarkable. IMPRESSION: No acute cardiopulmonary abnormality is seen. Dictated by: Rolando Augustine M.D. on 01/24/2025 at 21:13 Approved by: Rolando Augustine M.D. on 01/24/2025 at 21:13
--- NOTE | 2025-01-24 20:46 | DI.CT.S_ITS ---
PROCEDURE: CT ANGIO HEAD AND NECK INDICATIONS: left arm numbness/weakness,LKW 1930 TECHNIQUE: After the administration of intravenous contrast, 1 mm thick sections acquired from the aortic arch through the [place]. 3-dimensional bqkuzik-snravqtgh-wyjpnvsind (MIP) and/or volume rendering reformats were acquired of the central intracranial vasculature and neck separately. For radiation dose reduction, the following was used: automated exposure control, adjustment of mA and/or kV according to patient size. COMPARISON: None. FINDINGS: Image quality: Diagnostic. Cerebral CT Angiogram: Internal carotid arteries: No acute findings. Intracranial ICA are patent with no significant stenosis. No occlusion. No aneurysm. Anterior cerebral arteries: Unremarkable. No significant stenosis. No occlusion. No aneurysm. Middle cerebral arteries: Unremarkable. No significant stenosis. No occlusion. No aneurysm. Posterior cerebral arteries: Unremarkable. No significant stenosis. No occlusion. No aneurysm. Basilar artery: Unremarkable. No significant stenosis. No occlusion. No aneurysm. Vertebral arteries: Unremarkable as visualized. Dural venous sinuses: Unremarkable given phase of enhancement. Other: Arterial phase appearance of the brain parenchyma is unremarkable. Neck CT Angiogram: Internal carotid arteries: Unremarkable. No significant stenosis. No dissection or occlusion. Common carotid arteries: Unremarkable. No significant stenosis. No dissection or occlusion. External carotid arteries: Unremarkable. No occlusion. Vertebral arteries: Unremarkable. No significant stenosis. No dissection or occlusion. Aortic Arch and Mediastinum: Partially visualized aortic arch unremarkable without evidence of aneurysm. Origins of the great vessels unremarkable. Other: Right upper lobe ground-glass and consolidative opacity measuring up to 2 cm (8/290). Thyroid gland is enlarged with multiple nodules. IMPRESSION: No significant intracranial arterial abnormality is seen. No significant abnormality is seen within the arteries of the neck. Right upper lobe ground-glass and consolidative opacity measuring 2 cm, findings may represent infection. Recommend follow-up chest CT in 3 months to ensure resolution and exclude underlying neoplasm as this may also represent a sub solid nodule. Enlarged thyroid gland with multiple nodules. If not previously obtained, recommend nonurgent thyroid ultrasound. Any quantitative measurements of stenosis were performed using NASCET criteria. Approved by: Rolando Augustine M.D. on 01/24/2025 at 21:24
--- NOTE | 2025-01-24 20:46 | DI.CT.S_ITS ---
PROCEDURE: CT STROKE INDICATIONS: Positive BE-FAST, Stroke symptoms TECHNIQUE: Noncontrast 4.5 mm thick angled axial sections acquired from the foramen magnum to the vertex, with coronal reformats. For radiation dose reduction, the following was used: automated exposure control, adjustment of mA and/or kV according to patient size. COMPARISON: None. FINDINGS: Image quality: Diagnostic. CSF spaces: Basal cisterns are patent. No extra-axial fluid collections. The ventricles are symmetric in size and shape. Brain: No intracranial bleeds or mass effect. There is cerebral volume loss, with resultant ventricular and sulcal prominence. There are periventricular and deep white matter chronic small vessel ischemic changes. There is intracranial internal carotid artery atherosclerosis. Skull and face: Calvarium and visualized facial bones appear intact, without suspicious lesions. Sinuses: Visualized sinuses and mastoids are clear. IMPRESSION: No acute intracranial pathology. Findings communicated to the [facility] emergency department at the time of dictation. This study fulfills neurological imaging criteria for inclusion or exclusion of acute stroke therapies based on available published neurological guidelines. Dictated by: Rolando Augustine M.D. on 01/24/2025 at 21:01 Approved by: Rolando Augustine M.D. on 01/24/2025 at 21:04
--- NOTE | 2025-01-24 20:46 | EKG_ITS ---
[place] [id number] [place] [id number] Test Date: 2025-01-24 Pat Name: Kasie Mittal Department: Room: Gender: Female Geropsychologist: LUIS : 1940 Requested By: Order Number: [id number] Reading MD: Gerald Uribe Measurements Intervals [place] Rate: 94 P: 54 UT: 150 QRS: 22 QRSD: 136 T: 13 QT: 380 QTc: 475 Interpretive Statements Normal sinus rhythm with sinus arrhythmia Right bundle branch block Electronically Signed On 01-29-2025 16:18:33 PDT by Gerald Uribe
[2025-01-24 20:52] LABS: Add Manual Diff / Slide Review NO; Hematocrit 43.3 % (36-46); Hemoglobin 14.5 g/dL (12.0-16.0); Lymphocytes Absolute Auto 1400 /uL (1100-4500); Mean Corpuscular HGB Conc 33.4 % (30-36); Mean Corpuscular Hemoglobin 33.5 PG (26-34); Mean Corpuscular Volume 100.3 fL (80-100); Platelet Count 252 X10^3/uL (150-400)
[2025-01-24 20:55] LABS: INR 1.0 (0.9-1.3); Prothrombin Time 11.5 SECONDS (9.4-12.5)
[2025-01-24 20:58] LABS: PTT Partial Thromboplastin Tim 29 SECONDS (25.1-36.5)
[2025-01-24 20:59] LABS: Alanine Aminotransferase 27 IU/L (<35); Albumin 4.4 g/dL (3.5-5.0); Albumin Globulin Ratio 1.6 (1.0-2.8); Alkaline Phosphatase 70 U/L (38-126); Blood Urea Nitrogen 34 mg/dL (7-17); Calcium 10.2 mg/dL (8.4-10.2); Carbon Dioxide 21 mmol/L (22-32); Chloride 110 mmol/L (98-107); Creatine Kinase 69 U/L (30-135); Estimated Glomerular Filt Rate 60 mL/min (>60); Globulin 2.8 g/dL (1.7-4.1); Glucose 161 mg/dL (70-99); HEMOLYSIS 17 (0-50); Potassium 4.3 mmol/L (3.4-5.1); Sodium 140 mmol/L (137-145); Total Protein 7.2 g/dL (6.3-8.2)
[2025-01-24 21:11] LABS: Troponin I 0.051 ng/mL (0.01-0.034)
[2025-01-24] MEDS: ASPIRIN 81 MG CHEW TAB 324 MG PO (21:29)
[2025-01-24 22:48] LABS: Ur Creatinine Normal (Normal); Ur Specific Gravity Normal (Normal); Urine MDMA Negative (Negative); Urine Methamphetamines Negative (Negative); Urine THC Negative (Negative); Urine Tricyclic Antidepressant Negative (Negative); Urine pH Normal (Normal)
[2025-01-24 22:51] LABS: Culture Indicated Urine Specimen Cultured
[2025-01-24] MEDS: METOPROLOL ER 25 MG TABLET PO (23:40)
[2025-01-25] VITALS: BP 164/81; PULSE 78; RESP 22
[2025-01-25 00:16] LABS: Troponin I 0.047 ng/mL (0.01-0.034)
[2025-01-25 00:30] VITALS: BP 180/82; PULSE 77; RESP 24
[2025-01-25 01:00] VITALS: BP 167/81; PULSE 78; RESP 16
[2025-01-25 01:09] VITALS: BP 167/81; PULSE 79
[2025-01-25] MEDS: ATORVASTATIN 20 MG TABLET 80 MG PO (01:09)
[2025-01-25 01:13] LABS: Cholesterol 155 mg/dL (140-199); HDL Cholesterol 61 mg/dL (40-60); Triglycerides 59 mg/dL (35-150)
--- NOTE | 2025-01-25 01:17 | PC.NURSE ---
Spouse went home for the night at about 1am, called place to him informing him of her admission and room number in acute care.
[2025-01-25 01:30] LABS: Hemoglobin A1C% w Est Avg Glu 5.5 % (4.0-6.0)
[2025-01-25 01:47] VITALS: BMI 20.1
--- NOTE | 2025-01-25 04:21 | PC.WOUNDPHOT ---
Right louis Left arm
[2025-01-25 08:00] VITALS: BP 170/83; PULSE 80; RESP 14; TEMP 36.3; O2SAT 96
--- NOTE | 2025-01-25 08:45 | DI.ECHO.S_ITS ---
[facility] : : [id number] : [place] : : [id number] : : Phone: [phone] Echocardiogram Report + + :Name: DUKE WOLFE Study Date: 01/25/2025 Height: 64 in : :[facility] ReadingLocation: Weight: 126 lb : : Gender: Female BSA: 1.6 m2 : :: 1940 Age: 84 yrs BP: 170/83 mmHg: :Reason For Study: CVA : :Ordering Physician: ASAF, : :MADISYN Mccarty Performed By: Sadiq Moe : :Referring: MADISYN RON : + + Interpretation Summary Normal sinus rhythm. Normal LV size and severe eccentric LVH primarily involving the septum concerning for HCM. Hyperdynamic wall motion and LV systolic function. Ejection fraction is 70-75%. Severe left atrial enlargement; otherwise normal chamber sizes. Aortic valve is a trileaflet structure. Aortic valve leaflets are severely thickened and calcified and demonstrate moderately reduced leaflet excursion. There is severe associated aortic stenosis with peak velocity 4.3 m/s and mean gradient of 46 mmHg. There is associated left ventricular outflow tract obstruction with peak gradient in systole of 286 mmHg and peak velocity of 8.5 m/s. This measurement was obtained at rest and patient could not perform Valsalva. There is severe mitral annular calcification. There is mitral anterior leaflet systolic anterior motion with severe associated tricuspid regurgitation. No prior echo available for comparison. Procedure: A two-dimensional transthoracic echocardiogram with color flow and Doppler was performed. The study quality was technically good. There is no prior echocardiogram noted for this patient. The patient was in normal sinus rhythm during the exam. Left Ventricle: The left ventricle is normal in size. Left ventricular wall thickness is severely increased. Proximal septal thickening is noted. 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 There is no ventricular septal defect visualized. The ejection fraction is estimated to be 70-75%. Right Ventricle: The right ventricle is normal in size and function. Atria: The left atrium is severely dilated. Right atrial size is normal. There is no Doppler evidence for an interatrial shunt. Mitral Valve: There is severe mitral annular calcification. The mitral valve leaflets appear mildly thickened. The mitral valve leaflets are mildly calcified. There is severe mitral regurgitation. Aortic Valve: The aortic valve is moderately calcified. There is moderate aortic valve sclerosis. Tricuspid Valve: Tricuspid leaflets are thickened. There is mild tricuspid valve prolapse. There is moderate tricuspid regurgitation. Pulmonic Valve: The pulmonic valve is not well visualized. There is trace pulmonic regurgitation. Great Vessels: The aortic root is normal size. The dimensions of the ascending aorta are normal. The pulmonary artery is normal size. The IVC is dilated, but has some respiratory collapse suggesting high central venous pressure. Pericardium/ Pleura There is no pericardial effusion. There is no pleural effusion. MMode/2D Measurements & Calculations LVIDd: 3.2 cm LVOT diam: 1.8 cm LVIDs: 1.8 cm Ao root diam: 3.0 cm FS: 44.9 % asc Aorta Diam: 3.3 cm EPSS: 0.30 cm IVSd: 2.2 cm LVPWd: 1.4 cm LV duarte. diameter/BSA (cm/m^2): 2.0 LV sys. diameter/BSA (cm/m^2): 1.1 LA A2 area: 23.6 cm2 RA long axis: 4.0 cm LA A4 area: 24.1 cm2 RA area: 11.6 cm2 LA length (vol): 5.9 cm RA vol: 28.5 ml LA vol: 82.2 ml RA : 17.8 ml/m2 LA vol index: 51.2 ml/m2 IVC diam: 2.0 cm RVD1 (basal): 3.1 cm RVD2 (mid): 2.8 cm TAPSE: 2.4 cm Doppler Measurements & Calculations Ao V2 max: 428.0 cm/sec MV E max gregg: 132.2 cm/sec Ao V2 mean: 323.3 cm/sec MV A max gregg: 94.4 cm/sec Ao max P.3 mmHg MV E/A: 1.4 Ao mean P.9 mmHg Med Peak E' Gregg: 4.2 cm/sec Ao V2 VTI: 109.5 cm E/E' med: 31.2 Lat Peak E' Gregg: 4.8 cm/sec E/E' lat: 27.4 E/e' average: 29.3 MV dec time: 0.15 sec TR max gregg: 345.0 cm/sec TR max P.6 mmHg PA V2 max: 104.6 cm/sec PA V2 mean: 71.1 cm/sec PA mean P.3 mmHg PA pr(Accel): 51.6 mmHg Electronically signed by: Almita Baker M.D. on Reading Physician:01/25/2025 12:12 PM
--- NOTE | 2025-01-25 08:47 | PM.HP.1 ---
History of Present Illness History of Present Illness Date Patient Seen: 01/25/25 Time Patient Seen: 09:00 Chief complaint: Lt arm weakness Narrative: Chief complaint left arm weakness chief complaint left arm weakness Patient began having left arm weakness suddenly this morning outside window for intervention brought in for echo and MRI after initial CTA unrevealing she does have history of hypertrophic cardiomyopathy. Per note she was having coordination issues with left arm in ED however that seems to have resolved this morning. Eating and eliminating as normal she is ambulating normally. [facility] Social History household members: spouse Smoking Status: Unknown if ever smoked Meds Home Medications and Allergies Allergies Allergy/AdvReac Type Severity Reaction Status Date / Time Sulfa (Sulfonamide Allergy Unknown Verified 01/24/25 20:40 Antibiotics) (SULFA (SULFONAMIDE ANTIBIOTICS)) Review of Systems Review of Systems Narrative: All systems reviewed and negative except as otherwise documented in HPI Exam Vital Signs (past 8 hours): - 01/25/25 01:00 01/25/25 01:00 01/25/25 01:09 Temperature Pulse Rate 78 79 Respiratory Rate 16 Blood Pressure 167/81 H 167/81 H Pulse Oximetry Oxygen Flow Rate 01/25/25 08:00 Temperature 97.3 F L Pulse Rate 80 Respiratory Rate 14 Blood Pressure 170/83 H Pulse Oximetry 96 Oxygen Flow Rate 0 Oxygen Delivery Method Room Air Oxygen Flow Rate 0 Narrative Exam Narrative: Standing by hospital bed Const Other: Well-developed well-nourished HENID Other: Normocephalic left eye strabismus Resp Other: Moving air well speaking in full sentences on room air clear to auscultation bilaterally Cardio Other: Regular rate and rhythm S1-S2 no pedal edema GI Other: Soft nontender nondistended active bowel sounds Neuro Other: Cranial nerves 2-12 grossly intact or at baseline given existing strabismus her [id number] is about equal on both sides strength hand physician neonatology is 5/5 bilaterally in both arms overall benign exam for left upper extremity Psych Appearance: grossly normal Mood: congruent mood Thought Process: normal Thought Content: normal Objective Labs 01/24/25 20:40 01/24/25 20:40 Labs: Laboratory Results - last 24 hr 01/24/25 01/24/25 01/24/25 20:40 22:36 23:45 WBC 7.4 RBC 4.31 Hgb 14.5 Hct 43.3 MCV 100.3 H MCH 33.5 MCHC 33.4 RDW 13.5 Plt Count 252 Neut % (Auto) 70.4 Lymph % (Auto) 19.1 L [place] % (Auto) 8.2 Eos % (Auto) 1.4 L Baso % (Auto) 0.9 Neut # (Auto) 5200 Lymph # (Auto) 1400 [place] # (Auto) 600 Eos # (Auto) 100 Baso # (Auto) 100 PT 11.5 INR 1.0 APTT 29 Sodium 140 Potassium 4.3 Chloride 110 H Carbon Dioxide 21 L BUN 34 H Creatinine 0.93 Estimated GFR 60 BUN/Creatinine Ratio 36.6 H Glucose 161 H POC Whole Bld Glucose 148 H Hemoglobin A1c 5.5 Calcium 10.2 Total Bilirubin 0.8 AST 36 ALT 27 Alkaline Phosphatase 70 Total Creatine Kinase 69 Troponin I 0.051 H Total Protein 7.2 Albumin 4.4 Globulin 2.8 Albumin/Globulin Ratio 1.6 Triglycerides 59 Cholesterol 155 LDL Cholesterol, Calc 82 HDL Cholesterol 61 H Urine RBC 1-5/hpf Urine WBC 5-10/hpf H Ur Squamous Epith Cells 0-1 /hpf Urine Bacteria Occasional (0-1) Ur Culture Indicated? Specimen cultured Vol Urine Centrifuged 10ml (spun) U Opiates 300ng/mL cut Negative Ur Oxycodone Screen Negative Urine Methadone Screen Negative Ur Barbiturates Screen Negative U Tricyclic Antidepress Negative Ur Phencyclidine Scrn Negative Ur Amphetamines Screen Negative U Methamphetamines Scrn Negative Ur MDMA Scrn (Ecstasy) Negative U Benzodiazepines Scrn Negative Urine Cocaine Screen Negative U Marijuana (THC) Screen Negative Urine pH Normal Urine Specific [place] Normal Ur Creatinine Normal 01/24/25 01/25/25 23:46 01:51 WBC RBC Hgb Hct MCV MCH MCHC RDW Plt Count Neut % (Auto) Lymph % (Auto) [place] % (Auto) Eos % (Auto) Baso % (Auto) Neut # (Auto) Lymph # (Auto) [place] # (Auto) Eos # (Auto) Baso # (Auto) PT INR APTT Sodium Potassium Chloride Carbon Dioxide BUN Creatinine Estimated GFR BUN/Creatinine Ratio Glucose POC Whole Bld Glucose 92 Hemoglobin A1c Calcium Total Bilirubin AST ALT Alkaline Phosphatase Total Creatine Kinase Troponin I 0.047 H Total Protein Albumin Globulin Albumin/Globulin Ratio Triglycerides Cholesterol LDL Cholesterol, Calc HDL Cholesterol Urine RBC Urine WBC Ur Squamous Epith Cells Urine Bacteria Ur Culture Indicated? Vol Urine Centrifuged U Opiates 300ng/mL cut Ur Oxycodone Screen Urine Methadone Screen Ur Barbiturates Screen U Tricyclic Antidepress Ur Phencyclidine Scrn Ur Amphetamines Screen U Methamphetamines Scrn Ur MDMA Scrn (Ecstasy) U Benzodiazepines Scrn Urine Cocaine Screen U Marijuana (THC) Screen Urine pH Urine Specific [place] Ur Creatinine Assessment & Plan Assessment & Plan narrative: #LUE weakness/dyscoordination #possible cva Admit for echo and MRI, PT OT eval. Seems to be already improving. #hypertrophic cardiomyopathy Previously noted would benefit from repeat echo here anyway #RUL ground glass lesion on CTA Noted on CTA we will follow up; reassuring blood counts suspect noninfectious #multiple thyroid nodules with thyromegaly Noted on intake CT incidental finding follow up as outpatient. Dispo: admit obsv for MRI/echo/PT/OT PCP: Sharri MDM: Spouse Diet: General code: M60A2 [employer] Crewman-Based Coding :: [TOTAL MINUTES] spent with patient and on the chart (including review of chart, obtaining history, exam, reviewing outside data, placing orders, documenting exam and treatment plan, and counseling patient) on [DATE]. Quality VTE Deep Vein Thrombosis/Pulmonary Embolism Present on Admission: No
[2025-01-25] MEDS: ENOXAPARIN 40 MG/0.4 ML SYRINGE SUBCUT (09:22)
[2025-01-25] MEDS: SODIUM CHLORIDE 0.9% FLUSH 10 ML IV (09:23)
--- NOTE | 2025-01-25 11:39 | CM.DANOTE ---
Initial DCP Assessment Visit Note Reviewed EMR and team rounds for pt's medical status and updates. Went to meet with pt, however she was in the middle of getting an ECHO at the time of this visit. Pt lives ind w/spouse in their own home here in [place]. Will need to confirm who will transport her home once she's medically stable for d/c. No d/c needs are anticipated for CM at this time. Payor: Medicare PCP: Dr. Harrell Pt is a 84 year-old F who presented to the ED accompanied by her spouse and granddaughter with c/o sudden onset L-sided weakness, numbness, and loss of coordination in both her L-arm and leg. CT of the head was negative for abnormalities. [facility] neuro stroke team was consulted, and the plan was made to admit pt without the need for transfer, for stroke management. She was started on a statin, aspirin, ECHO, and brain MRI. MRI is pending for later today. If negative, pt will likely work with PT, and if cleared, will d/c home later today. Monitoring for any further evolving d/c needs and resource assistance. Discharge Planning/Care Management CM Discharge Assessment Start: 01/25/25 01:47 Freq: Status: Active Protocol: Document 01/25/25 11:27 DPL (Rec: 01/25/25 11:29 DPL [id number]) Discharge Planning Assessment Assigned Discharge RONEY [place] [employer] Advance Directives? No History Provided By Medical Record Expected Length of 2 Stay Has Patient been No admitted in last 30 days? Prior Living House Arrangements Household Members spouse Type of Relies on Others transporation used prior to admit Independent with ADL Yes 's Is patient alert and Yes oriented? Comment Pending PT/OT evals and recs for d/c. Barriers to No Discharge Discharge Plan Home Referrals Initiated None needed Additional Comment Pending. Review Status In Process Please Provide Date 01/25/25 Initial DC Assessment Was Performed
[2025-01-25 12:10] VITALS: BP 174/84; PULSE 77; RESP 16; TEMP 36.7; O2SAT 99
--- NOTE | 2025-01-25 12:52 | PM.DS.1 ---
History of Present Illness History of Present Illness Date Patient Seen: 01/25/25 Time Patient Seen: 12:53 Chief complaint: Lt arm weakness Narrative: Chief complaint left arm weakness Able to obtain echocardiogram does not reveal any causative factors for stroke existing cardiomyopathy discussed with Dr. Baker. She feels back to baseline with equal equivalent strength and coordination and sensation both arms. Our MRI machine is not usable for the next 48 hours. She is eager to go home. Which I think is reasonable we will follow up with us in the outpatient setting. Discharge Providers Provider Date of admission: 01/25/25 00:53 Discharge Date: 01/25/25 Primary care physician: Sreedhar Harrell MD Consults: 01/25/25 08:44 Consult to Occupational Therapy Evaluate & Treat Comment: Physician Instructions: Evaluate and treat Consult to Physical Therapy Evaluate & Treat Comment: Physician Instructions: Evaluate and Treat Discharge provider: Sreedhar Harrell MD Summary Hospital Course Discharge Diagnosis: #LUE weakness/dyscoordination #possible cva #hypertrophic cardiomyopathy #RUL ground glass lesion on CTA #multiple thyroid nodules with thyromegaly Hospital Course: Patient began having left arm weakness suddenly this morning outside window for intervention brought in for echo and MRI after initial CTA unrevealing she does have history of hypertrophic cardiomyopathy. Incidental finding sof thyroid nodule and lung gound glass nodule may need outpt f/up. Per note she was having coordination issues with left arm in ED however that seems to have resolved this morning. Eating and eliminating as normal she is ambulating normally. Echo did not reveal any addressable causes of CVA - MRI could not be obtained but symptoms were completely resolved and she was back to baseline and preferred to go home. Will discharge on 40mg atorvastatin and ASA 81 - then f/up at outpt clinic appt. Status at Discharge Cognitive/behavioral status at discharge: at baseline, oriented Functional status at discharge: independent ambulation Overall status at discharge: patient is back to baseline Exam Vital Signs (past 8 hours): - 01/25/25 08:00 01/25/25 12:10 Temperature 97.3 F L 98.1 F Pulse Rate 80 77 Respiratory Rate 14 16 Blood Pressure 170/83 H 174/84 H Pulse Oximetry 96 99 Oxygen Flow Rate 0 0 Oxygen Delivery Method Room Air Oxygen Flow Rate 0 Narrative Exam Narrative: Standing at charge nurse station asking to leave Const Other: Well-developed well-nourished HENMT Other: Normocephalic atraumatic left eye strabismus as baseline Resp Other: Clear to auscultation bilaterally full sentences on room air Cardio Other: Regular rhythm S1-S2 no pedal edema GI Other: Soft nontender active bowel sounds Neuro Other: Alert awake oriented moving all limbs equally strength in both upper extremities is 5 out of a sensation. Cranial nerves 2-12 grossly intact. Objective Labs 01/24/25 20:40 01/24/25 20:40 Labs: Laboratory Results - last 24 hr 01/24/25 01/24/25 01/24/25 20:40 22:36 23:45 WBC 7.4 RBC 4.31 Hgb 14.5 Hct 43.3 MCV 100.3 H MCH 33.5 MCHC 33.4 RDW 13.5 Plt Count 252 Neut % (Auto) 70.4 Lymph % (Auto) 19.1 L [place] % (Auto) 8.2 Eos % (Auto) 1.4 L Baso % (Auto) 0.9 Neut # (Auto) 5200 Lymph # (Auto) 1400 [place] # (Auto) 600 Eos # (Auto) 100 Baso # (Auto) 100 PT 11.5 INR 1.0 APTT 29 Sodium 140 Potassium 4.3 Chloride 110 H Carbon Dioxide 21 L BUN 34 H Creatinine 0.93 Estimated GFR 60 BUN/Creatinine Ratio 36.6 H Glucose 161 H POC Whole Bld Glucose 148 H Hemoglobin A1c 5.5 Calcium 10.2 Total Bilirubin 0.8 AST 36 ALT 27 Alkaline Phosphatase 70 Total Creatine Kinase 69 Troponin I 0.051 H Total Protein 7.2 Albumin 4.4 Globulin 2.8 Albumin/Globulin Ratio 1.6 Triglycerides 59 Cholesterol 155 LDL Cholesterol, Calc 82 HDL Cholesterol 61 H Urine RBC 1-5/hpf Urine WBC 5-10/hpf H Ur Squamous Epith Cells 0-1 /hpf Urine Bacteria Occasional (0-1) Ur Culture Indicated? Specimen cultured Vol Urine Centrifuged 10ml (spun) U Opiates 300ng/mL cut Negative Ur Oxycodone Screen Negative Urine Methadone Screen Negative Ur Barbiturates Screen Negative U Tricyclic Antidepress Negative Ur Phencyclidine Scrn Negative Ur Amphetamines Screen Negative U Methamphetamines Scrn Negative Ur MDMA Scrn (Ecstasy) Negative U Benzodiazepines Scrn Negative Urine Cocaine Screen Negative U Marijuana (THC) Screen Negative Urine pH Normal Urine Specific [place] Normal Ur Creatinine Normal 01/24/25 01/25/25 23:46 01:51 WBC RBC Hgb Hct MCV MCH MCHC RDW Plt Count Neut % (Auto) Lymph % (Auto) [place] % (Auto) Eos % (Auto) Baso % (Auto) Neut # (Auto) Lymph # (Auto) [place] # (Auto) Eos # (Auto) Baso # (Auto) PT INR APTT Sodium Potassium Chloride Carbon Dioxide BUN Creatinine Estimated GFR BUN/Creatinine Ratio Glucose POC Whole Bld Glucose 92 Hemoglobin A1c Calcium Total Bilirubin AST ALT Alkaline Phosphatase Total Creatine Kinase Troponin I 0.047 H Total Protein Albumin Globulin Albumin/Globulin Ratio Triglycerides Cholesterol LDL Cholesterol, Calc HDL Cholesterol Urine RBC Urine WBC Ur Squamous Epith Cells Urine Bacteria Ur Culture Indicated? Vol Urine Centrifuged U Opiates 300ng/mL cut Ur Oxycodone Screen Urine Methadone Screen Ur Barbiturates Screen U Tricyclic Antidepress Ur Phencyclidine Scrn Ur Amphetamines Screen U Methamphetamines Scrn Ur MDMA Scrn (Ecstasy) U Benzodiazepines Scrn Urine Cocaine Screen U Marijuana (THC) Screen Urine pH Urine Specific [place] Ur Creatinine PFSH Social History household members: spouse Smoking Status: Unknown if ever smoked Discharge Assessment & Plan Assessment and Plan Assessment: #LUE weakness/dyscoordination #possible cva Seems to be back to baseline based on exam - echo report reviewed with cardiology - unable to obtain MRI but in absence of symptoms the potential benefit is limited. will discharge on atorvastatin 40mg and ASA 81 - f/up as outpt. #hypertrophic cardiomyopathy Previously noted - cardiology recommends f/up as outpt - may need more beta blockade - keep volume up do not diurese. #RUL ground glass lesion on CTA Noted on CTA we will follow up as outpt; reassuring blood counts suspect noninfectious #multiple thyroid nodules with thyromegaly Noted on intake CT incidental finding follow up as outpatient. Dispo: admit obsv for MRI/echo/PT/OT PCP: Sharri MDM: Spouse Diet: General code: Full Discharge Plan Discharge Plan Patient Disposition: Home Provider Discharge Comment: atorvastatin and asa 81 sent to pharmacy - f/up wt PCP in clinic next week Discharge orders & Medications Prescriptions: New atorvastatin 40 mg tablet 40 mg PO BEDTIME Qty: 30 0RF aspirin 81 mg tablet,chewable 81 mg PO DAILY Qty: 30 0RF Follow up/Referrals: Sreedhar Harrell MD [Primary Care Provider, [facility]] Diet/Activity/Treatments Diet: Diet as Tolerated Visit Report/Discharge Packet Stand Alone Forms: Patient Portal/API, Stroke Signs & Symptoms Discharge Data Primary Care Provider: Sreedhar Harrell Attending Provider: Sreedhar Harrell Admit Date/Time: 01/25/25 00:53 Quality VTE Deep Vein Thrombosis/Pulmonary Embolism Present on Admission: No
== END 2025-01-25 13:08 | disposition home or self-care (01) ==
LOC: ED 21:54 → AC 01-25 00:53
PROVIDERS: Admitting Provider Family Medicine; Emergency Provider Emergency Medicine; PCP Family Medicine; Visit Provider Family Medicine
DX: I42.2 Other hypertrophic cardiomyopathy (principal); R53.1 Weakness; R20.0 Anesthesia of skin; R93.89 Abnormal findings on diagnostic imaging of other specified body structures; E01.0 Iodine-deficiency related diffuse (endemic) goiter; R91.8 Other nonspecific abnormal finding of lung field
CPT/HCPCS: 36415; 70450; 70496; 70498; 71045; 80053; 80061; 80305; 81003; 81015; 82550; 82962; 83036; 84484; 85025; 85610; 85730; 87086; 93005; 93306; 96372; 99285; G0378; J1650; Q9967